=== PATIENT | female | born 1970 | race Caucasian/White ===

== ENCOUNTER → 2022-06-05 14:52 | Outpatient (BNVA) | payer MEDICAID, SELFPAY | PROVIDERS: Visit Provider Orthopaedic Surgery | DX: M17.0 Bilateral primary osteoarthritis of knee (principal) | CPT/HCPCS: 73560; 73565 ==

== ENCOUNTER → 2022-07-04 15:04 | Outpatient (BNVA) | payer MEDICAID, SELFPAY | PROVIDERS: Referring Provider Orthopaedic Surgery; Visit Provider Nurse Practitioner Family | DX: M54.31 Sciatica, right side (principal) | CPT/HCPCS: 72110 ==

== ENCOUNTER 2022-08-29 14:03 | Outpatient (CLI) | payer MEDICAID, SELFPAY ==
--- NOTE | 2022-08-29 13:45 | MR_ITS ---
WS: [id number] MRI LUMBAR SPINE NONCONTRAST TECHNIQUE: Sagittal T1, T2 and STIR imaging. Axial T1 and T2 imaging. CLINICAL INFORMATION: low back pain COMPARISON: None. FINDINGS: Mild lumbar curve. No acute compression. No high-grade central canal stenosis. 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 L1-L2: No significant disc bulging. Moderate facet arthropathy. Spinal canal and foramen are patent. L2-L3: Mild annular bulging. Moderate facet arthropathy. Mild RIGHT and no significant LEFT foraminal narrowing. L3-L4: No significant disc bulging. Moderate facet arthropathy. Spinal canal and foramen are patent. L4-L5: Mild annular bulging. Advanced facet arthropathy. Mild bilateral foraminal narrowing LEFT grea ter than RIGHT. L5-S1: No significant disc bulging. Moderate to advanced facet arthropathy worse in the LEFT. Spinal canal and foramen are patent. Small RIGHT renal cortical cyst. Normal caliber visualized abdominal aorta. MR/MR lumbar spine wo con* [id number] IMPRESSION: 1. Mild lumbar curve. No acute compression. No high-grade central canal stenos is. 2. Mild annular bulging L4-L5 with slight effacement of ventral thecal sac. Mi ld bilateral foraminal narrowing at this level. 3. Mild RIGHT L2-L3 and RIGHT L3-L4 foraminal narrowing. 4. Moderate to advanced facet arthropathy L4-L5 and LEFT L5-S1.
== END 2022-08-29 14:04 | disposition home or self-care (01) ==
LOC: RAD 14:08
PROVIDERS: Visit Provider Nurse Practitioner Family
DX: M54.50 Low back pain, unspecified (principal); M47.897 Other spondylosis, lumbosacral region
CPT/HCPCS: 72148

== ENCOUNTER 2022-09-13 14:35 | Outpatient (CLI) | payer MEDICAID, SELFPAY ==
--- NOTE | 2022-09-13 14:56 | MM_ITS ---
WS: [id number] BILATERAL 3D TOMOSYNTHESIS DIGITAL SCREENING MAMMOGRAPHY WITH CAD CLINICAL INFORMATION: SCREENING HISTORY: Screening mammogram. Bilateral breast cysts. COMPARISON: November 04, 2020 TECHNIQUE: Bilateral CC and MLO views. FINDINGS: The breasts are composed of heterogeneous fibroglandular density tissue, which can limit the detectio n of small underlying mass lesions. Slightly spiculated asymmetry upper RIGHT breast progressed karlie red to previous. Recommend further evaluation with spot compression diagnostic mammography and ultras ound if persistent. Few stable intramammary lymph nodes LEFT breast. A few incidental punctate calcifications. Biopsy mar ker upper outer LEFT breast.a MM/[place] [id number] IMPRESSION: BI-RADS: 0-Incomplete: Need additional imaging evaluation FOLLOW UP: Need Additional Imaging Recommend RIGHT breast diagnostic mammography with spot compression views and u ltrasound if persistent.
== END 2022-09-13 14:36 | disposition home or self-care (01) ==
PROVIDERS: PCP Registered Nurse; Visit Provider Registered Nurse
DX: Z12.31 Encounter for screening mammogram for malignant neoplasm of breast (principal)
CPT/HCPCS: 77063; 77067

== ENCOUNTER 2022-10-11 13:13 | Outpatient (CLI) | payer MEDICAID, SELFPAY ==
--- NOTE | 2022-10-11 13:19 | MM_ITS ---
WS: [id number] RIGHT 3D TOMOSYNTHESIS DIGITAL MAMMOGRAPHY WITH CAD CLINICAL INFORMATION: ABNORMAL MAMMO HISTORY: Additional views COMPARISON: September 13, 2022 TECHNIQUE: 2 views of the right breast were obtained. FINDINGS: Scattered fibroglandular densities of the right breast. Persistent asymmetry in the upper outer RIGHT breast anteriorly. This is slightly less distinct on the spot compression views. Ultrasound describe d below ULTRASOUND BREAST RIGHT TECHNIQUE: Ultrasound right breast focused area of concern. CLINICAL INFORMATION: ABNORMAL MAMMO FINDINGS: Ultrasound RIGHT breast upper-outer quadrant. Incidental cyst at the 9:00 position 1 cm from the nipp le measuring 8 x 6 x 4.5 mm with a single septation. This has a benign appearance. No other suspiciou s findings. No suspicious lesions to target for biopsy. MM/[place] [id number] IMPRESSION: BI-RADS: 2-Benign FOLLOW UP: 1 Year Follow-up Recommend return to annual screening mammography.
== END 2022-10-11 13:14 | disposition home or self-care (01) ==
LOC: RAD 13:16
PROVIDERS: PCP Registered Nurse; Visit Provider Registered Nurse
DX: R92.8 Other abnormal and inconclusive findings on diagnostic imaging of breast (principal)
CPT/HCPCS: 76642; 77061; G0279

== ENCOUNTER 2024-08-11 13:29 | Observation (INO) | payer BC, MEDICAID, SELFPAY ==
--- NOTE | 2024-08-06 12:42 | ANES.PREANE2 ---
Pre-Anesthetic Assessment Height/Weight: Height 5 ft 8.5 in Preop Diagnosis: Cystocele Operation Date: 08/11/24 11:00 Proposed Procedures p Anterior Repair Anterior Colporrhaphy 35306, 80407, N81.10, N81.6, N39.3(Not Applicable) - Joaquin Restrepo MD s Posterior Repair Posterior Colporrhaphy(Not Applicable) - Joaquin Restrepo MD s Sling Single Incision Midurethral Sling(Not Applicable) - Joaquin Restrepo MD Was Beta Atilio taken within 24 hours: N/A Was Clonidine taken within 24 hours: N/A Social No alcohol and No tobacco Exam alert, oriented x 3, clear to auscultation bilaterally and regular rate & rhythm Airway Submandibular: within normal limits Cervical ROM: within normal limits Mallampati: Class III Dentition: full Comments: Comments: Multiple missing teeth, denies any loose Anesthetic Plan ASA status: 2 Anesthesia: General Other: No prior issues with anesthesia NPO at midnight prior to surgery History of hypertension on HCTZ Denies smoking, prior nicotine use Plan for GETA Medications/Allergies Home Medications Medication Instructions Recorded Confirmed Last Taken Type aspirin 81 mg tablet,delayed 81 mg PO DAILY 06/26/23 08/06/24 08/05/24 History release (Adult Aspirin Regimen) clindamycin phosphate 1 % topical 1 applic topical DAILY 08/02/23 08/06/24 Unknown History gel, once daily hydrochlorothiazide 12.5 mg tablet 12.5 mg PO DAILY 09/05/23 08/06/24 08/06/24 History bupropion HCl 300 mg 24 hr tablet, 300 mg PO QAM #30 tabs 06/25/24 08/06/24 08/06/24 Rx extended release (Wellbutrin XL) hydroxyzine HCl 50 mg tablet 100 mg (2 x 50 mg) PO .HS PRN 06/25/24 08/06/24 08/05/24 Rx insomnia #60 tabs paroxetine HCl 40 mg tablet 60 mg (1.5 x 40 mg) PO DAILY #45 06/25/24 08/06/24 08/06/24 Rx tabs prazosin 5 mg capsule 10 mg (2 x 5 mg) PO .HS #60 caps 06/25/24 08/06/24 08/05/24 Rx ropinirole 4 mg tablet 4 mg PO .HS #30 tabs 06/25/24 08/06/24 08/05/24 Rx Allergies Allergy/AdvReac Type Severity Reaction Status Date / Time gabapentin Allergy Mild hives Verified 08/06/24 09:56 nickel Allergy ALGY-Rash Verified 08/06/24 12:07 lisinopril AdvReac Intermediate Coughing Verified 08/06/24 09:56 [facility] Anesthesia Medical History (Updated 08/06/24 @ 12:09 by Alba Caldera RN) Psychiatric care Family History Father Hypertension Heart disease Diabetes Mother Breast cancer Heart disease Hypertension Brother Hypertension Grandmother Diabetes Denies family history of Colon cancer Ovarian cancer Uterine cancer Thyroid disease Stroke Social History Smoking and tobacco/nicotine status: current every day tobacco/nicotine user (Vape) Data Anesthesia Cardiac Studies: No Data to Display
[2024-08-11] VITALS (12 sets, daily range): BP systolic 123–167; BP diastolic 69–108; PULSE 61–87; RESP 16–18; TEMP 36.2–36.8; O2SAT 90–97
[2024-08-11] MEDS: sodium chloride 0.9% 1,000 ML 30 ML IV (09:14)
[2024-08-11] MEDS: scopolamine 1 mg PATCH 1 PATCH TRANSDERMA (09:19)
[2024-08-11] MEDS: enoxaparin 40 mg/0.4 mL Syringe SUBCUT (09:25)
[2024-08-11 09:29] LABS: Basophils # 0.1 10^3/uL (0.0-0.1); Basophils % 0.6 %; Eosinophils # 0.3 10^3/uL (0.0-0.8); Eosinophils % 3.3 %; Hematocrit 38.9 % (36-47); Lymphocytes # 3.2 10^3/uL (0.8-4.8); Lymphocytes % 31.8 %; Mean Corpuscular HGB Conc 33.2 g/dL (30-55); Mean Corpuscular Hemoglobin 29.5 pg (27-33); Mean Platelet Volume 9.9 fL (7.4-10.4); Monocytes # 0.6 10^3/uL (0.2-0.9); Monocytes % 5.7 %; Neutrophils # 5.88 10^3/uL (1.8-7.7); Neutrophils % 58.3 %; Nucleated Red Blood Cells % 0 %; Platelet Count 265 10^3/cmm (157-399); Red Blood Count 4.37 10^6/uL (3.85-5.65); Red Cell Distribution Width 13.2 % (12.1-15.1); White Blood Count 10.09 10^3/uL (3.29-11.43)
[2024-08-11 09:53] LABS: Alanine Aminotransferase 15 U/L (0-33); Albumin Level 4.3 g/dL (3.5-5.2); Alkaline Phosphatase 107 U/L (35-105); Anion Gap 19.5 (5-19); Aspartate Amino Transferase 18 U/L (0-32); Blood Urea Nitrogen 17 mg/dL (6-20); Calcium 9.4 mg/dL (8.5-10.5); Carbon Dioxide 24 mmol/L (22-29); Chloride 98 mmol/L (98-107); Creatinine Clr Calc Pharmacy 136.5187; Globulin 2.8 g/dL (1.3-4.6); Glomerular Filtration Rate 87.5 mL/min (90-130); Glucose 117 mg/dL (65-115); Osmolality Calculated 287 mOsm/kg (285-295); Potassium 4.5 mmol/L (3.5-5.1); Sodium 137 mmol/L (136-145); Total Bilirubin 0.2 mg/dL (0.15-1.2); Total Protein 7.1 g/dL (6.6-8.7)
[2024-08-11] MEDS: ceFAZolin 3,000 MG in sodium chloride 0.9% (plus) 100 ML 200 MG IV (10:38)
[2024-08-11 11:03] LABS: Bilirubin Urine Negative (Negative); Blood Urine Negative (Negative); Glucose Urine UA Negative (Normal); Ketones Urine Negative (Negative); Leukocyte Esterase Urine Negative (Negative); Nitrate Urine Negative (Negative); Protein Urine Negative (Negative); Specific Gravity, Urine 1.019 (1.005-1.030); Urine Appearance Clear (CLEAR); Urine Color Yellow (Yellow); Urobilinogen Urine 0.2 mg/dL (Negative); pH Urine 5.5 (5-7)
[2024-08-11 11:08] LABS: Add Urine Microscopic? YES; Bacteria Urine None Seen /hpf; Hyaline Casts Urine 0-4 /lpf; RBC Urine 0-2 /hpf (0-2); Squamous Epithelial Cell Urine 0-5 /hpf (0-5); WBC Urine 0-5 /hpf (0-5)
--- NOTE | 2024-08-11 11:31 | P.ANESUD_ITS ---
Pre-Anesthetic Update Pre-Anesthetic Assessment: Date of Surgery/Procedure: 08/11/24 Preop Cata gnosis: Cystocele, rectocele, mixed urinary incontinence Proposed Procedure: Operation Date: 08/11/24 10:20 Proposed Procedures p Anterior Repair Anterior Colporrhaphy 48771, 43591, N81.10, N81.6, N39.3(Not Applicable) - Joaquin Restrepo MD s Posterior Repair Posterior Colporrhaphy(Not Applicable) - Joaquin Restrepo MD s Sling Single Incision Midurethral Sling(Not Applicable) - Joaquin Restrepo MD Any changes to Pre-Anesthetic Assessment?: No Last Intake: Intake Last Liquid Date 08/10/24 Last Liquid Time 21:00 Last Solid Date 08/10/24 Last Solid Time 22:30 Labs Last 48hrs: Short CBC 08/11/24 Range/Units 09:13 WBC 10.09 (3.29-11.43) 10^ 3/uL Hgb 12.90 (11.27-16.99) g/ dL Hct 38.9 (36-47) % MCV 89.0 (85-98) fl Plt Count 265 (157-399) 10^3/c mm Neut % (Auto) 58.3 % Neut # (Auto) 5.88 (1.8-7.7) 10^3/u L BMP 08/11/24 09:13 Sodium 137 Potassium 4.5 Chloride 98 Carbon Dioxide 24 BUN 17 Creatinine 0.7 Glucose 117 H Calcium 9.4 Liver Function 08/11/24 Range/Units 09:13 Total Bilirubin 0.2 (0.15-1.2) mg/dL AST 18 (0-32) U/L ALT 15 (0-33) U/L Alkaline Phosphata se 107 H (35-105) U/L Albumin 4.3 (3.5-5.2) g/dL Urine 08/11/24 Range/Units 10:33 Urine Color Yellow (Yellow) Urine Appearance Clear (CLEAR) Urine pH 5.5 (5-7) Ur Specific Gravit y 1.019 (1.005-1.030) Urine Protein Negative (Negative) Urine Glucose (UA) Negative (Normal) Urine Ketones Negative (Negative) Urine Nitrate Negative (Negative) Urine Bilirubin Negative (Negative) Ur Leukocyte Meagan ase Negative (Negative) Urine RBC 0-2 (0-2) /hpf Urine WBC 0-5 (0-5) /hpf Blood Bank 08/11/24 09:13 Blood Type B Positive Rho(D) Type Rh positive Antibody Screen Negative Vitals: Temperature 97.7 F 08/11/24 09:01 Temperature Source Temporal Artery S can 08/11/24 09:01 Pulse Rate 87 08/11/24 09:01 Respiratory Rate 18 08/11/24 09:01 Blood Pressure 152/95 08/11/24 09:01 Blood Pressure Stephanie n 114 08/11/24 09:01 Pulse Oximetry 97 08/11/24 09:01 Oxygen Delivery Me thod Room Air 08/11/24 09:01 Exam: Pre-Anes Outpt Exam: alert, oriented x 3, clear to auscultation bilaterally and regular rate & rhythm Cardiac Studies: No Data to Display
--- NOTE | 2024-08-11 11:42 | W.PM.OPSUD ---
Surgery/Procedure H&P Update DATE OF PROCEDURE: August 11, 2024 DATE H&P PERFORMED: 08/06/24 H&P UPDATE INFORMATION: I have reviewed H&P completed within last 30 days, I have examined patient prior to procedure and No changes to prior documentation PREOP DIAGNOSIS: Cystocele, rectocele, mixed urinary incontinence PLANNED PROCEDURE: Operation Date: 08/11/24 10:20 Proposed Procedures p Anterior Repair Anterior Colporrhaphy 59422, 55308, N81.10, N81.6, N39.3(Not Applicable) - Joaquin Restrepo MD s Posterior Repair Posterior Colporrhaphy(Not Applicable) - Joaquin Restrepo MD s Sling Single Incision Midurethral Sling(Not Applicable) - Joaquin Restrepo MD
[2024-08-11] MEDS: lidocaine-epi 2% PF 1:200,000 20 mL SDV INJECTION (12:23)
--- NOTE | 2024-08-11 13:45 | W.PM.BPON ---
Date of Procedure: 08/11/24 Surgeon: Joaquin Restrepo MD [employer](s): Procedure(s) performed: Anterior colporrhaphy augmented with allograft, mid urethral sling, posterior colporrhaphy Findings of the procedure(s): Cystocele, rectocele Estimated blood loss: 50 Specimen(s) removed: None Post-operative diagnosis: Status post anterior colporrhaphy, posterior colporrhaphy and mid urethral sling
--- NOTE | 2024-08-11 13:47 | P.OP_ITS ---
Operative Report Date of procedure: August 11, 2024 Pre-op diagnosis: Cystocele 3 Rectocele 3 Mixed urinary incontinence Post-op diagnosis: same Procedure done: Anterior colporrhaphy augmented with allograft Mid urethral sling Posterior colporrhaphy Cystoscopy Implants: Coloplast Altis midurethral sling Coloplast dermis allograft Surgeon: Joaquin Restrepo MD Estimated blood loss (mL): 50 IV fluids (mL): 1,200 Urine output (mL): 200 Complications: none Procedure: After obtaining informed consent, the patient was taken to the operating room and placed in the supine position, given general anesthesia, and prepped and draped in sterile fashion. The abdomen, vulva and vagina were prepped and draped in a sterile manner. A time out procedure was performed. The anterior vaginal mucosa beneath the midurethra was infiltrated with 2% lidocaine with epinephrine. A vertical midline incision was made beneath the midurethra, nearly 1.5 cm length. Careful submucosal dissection was performed bilaterally up to the interior portion of the inferior pubic ramus. The insertion of adductor longus tendon on the patient?s pubic ramus was identified as reference land yana. Palpated the notch along the internal edge of ischiopubic ramus where the adductor longus tendon and the inferior pubic ramus meet. The Altis single incision sling (SIS) was selected. Then the needle of the SIS inserted aiming at the location of this notch. One of the integrated self-fixating tips place onto the needle by sliding it over the end of the needle. The needle/sling assembly was inserted toward the location of identified reference notch making sure that the flat of the handle is perpendicular to the desired path. The needle was tracked along the posterior surface of the ischiopubic ramus until the midline yana on the mesh is approximately at the midline position under the urethra. The needle was removed and the same was repeated on the contralateral side until the appropriate sling tension under the urethra was achieved ensuring that the mesh lays flat. The needle was removed and vaginal incision was closed in a running interlocking fashion with 2-0 Vicryl. The vaginal mucosa was scored in the midline with the Bovie approximately 1 cm medial to the urethral meatus to 1 cm distal to the vaginal cuff. This vaginal mucosa was then undermined and then incised in the midline with the Metzenbaum scissors. The lateral aspects of the vaginal mucosa were then grasped with the Allis clamps and the vaginal mucosa was then dissected off the underlying fascia with the Metzenbaum scissors. Again, there was noted to be quite a bit of oozing at the incision, which was controlled with cautery. After adequate dissection was performed, bilaterally. A coloplast Dermis allograft was modified at time of application to fit spacea, 3 x 3 cm piece. The Coloplast allograft was placed in front of cystocele ready to be implanted facing the vagina mucosa. Bray ture is placed at distal end of graft and placed towards vaginal cuff. Final suture is placed on proximal portion of the graft to complete the placement overlying the bladder. Then Interrupted vertical mattress sutures of 0 Vicryl were used to elevate the cystocele superiorly. The excessive vaginal mucosa was then trimmed with the Metzenbaum scissors and the vaginal mucosa was then reapproximated in the running interlocking fashion with 2-0 Vicryl. A dilute 2% lidocaine with epinephrine solution was infiltrated under the posterior vaginal mucosa midline and into the perineal body. An inverted triangle incision was cut in the perineum. The posterior vaginal wall was opened vertically and midline up to the apex of the rectocele. The cut edges were held and splayed laterally with a series of Allis The open vaginal mucosa was then dissected laterally with a combination of sharp and blunt dissection, exposing the perirectal fascia. The perirectal fascia was then reapproximated with interr upted #2-0 Vicryl sutures to draw the lateral folds together and tuck the rectocele back. Deep interrupted sutures of #0 Vicryl were used to reapproximate the fibers of the levator ani muscles. The excess vaginal mucosa was trimmed. The posterior vaginal wall was closed with a running locked #0 Vicryl to the hymenal tags. The superficial perineal muscles were closed with running unlocked #0 Vicryl and the perineal skin was closed with running subcuticular #2-0 Vicryl. Then the Hudson catheter was removed and cystoscope was inserted. The bladder was filled with sterile water. Complete evaluation of the bladder mucosa was performed noting no lacerations, dimpling, tears, bleeding of the mucosa or muscular layers. Both ureteral orifices were identified. Prompt excretion of urine from both ureteral orifices was noted. Cystoscope was withdrawn. The Hudson catheter was replaced. Excellent hemostasis was obtained. A vaginal pack is placed overnight as postoperative support for the vaginal tissues after graft placement and closure of vaginal incisions. Sponge, lap, needle, and instrument counts were correct times three. The patient was taken to the recovery room, awake and in stable condition.
--- NOTE | 2024-08-11 14:15 | ANE.PACU2 ---
Inpatient post-anesthesia follow up: Airway intact: Yes Vital signs: Temperature 97.9 F Pulse Rate 73 Respiratory Rate 16 Blood Pressure 166/97 Pulse Oximetry 96 Oxygen Delivery Me thod Room Air Oxygen Flow Rate Fraction of Inspir ed Oxygen Hydration adequate: Yes Nausea and vomiting: No Pain level: 1 Mental status: Baseline
[2024-08-11] MEDS: ketorolac 30 mg/mL INJ IVP ×2 (15:00→20:20)
[2024-08-11] MEDS: HYDROcodone-acetaminophen 5-325 mg Tablet PO ×2 (15:56→22:30)
[2024-08-11] MEDS: simethicone 80 mg Chew PO (20:20)
[2024-08-11] MEDS: docusate sodium 100 mg Capsule PO (20:20)
[2024-08-11] MEDS: prazosin 5 mg Capsule 10 MG PO (21:18)
[2024-08-11] MEDS: ropinirole 2 mg Tablet 4 MG PO (21:18)
[2024-08-11] MEDS: hyDROXYzine 25 mg Capsule 100 MG PO (21:18)
[2024-08-11] MEDS: dextrose 5%-lactated ringers 1,000 ML 125 ML IV (21:19)
[2024-08-12] VITALS: BP 130/70; PULSE 59; RESP 16; TEMP 36.5; O2SAT 96
[2024-08-12] MEDS: ketorolac 30 mg/mL INJ IVP (02:37)
[2024-08-12 05:00] VITALS: BP 123/63; PULSE 73; RESP 18; TEMP 36.6; O2SAT 96
[2024-08-12] MEDS: buPROPion XL (24 HR) 300 mg Tablet PO (05:22)
--- NOTE | 2024-08-12 05:35 | PC.NURSE ---
Vaginal packing removed. Patient tolerated the procedure well. Scant blood noted.
[2024-08-12 05:43] LABS: Hematocrit 36.2 % (36-47); Mean Corpuscular Hemoglobin 29.1 pg (27-33); Mean Platelet Volume 9.9 fL (7.4-10.4); Platelet Count 234 10^3/cmm (157-399); Red Blood Count 3.98 10^6/uL (3.85-5.65); Red Cell Distribution Width 13.2 % (12.1-15.1); White Blood Count 12.38 10^3/uL (3.29-11.43)
--- NOTE | 2024-08-12 09:05 | P.DS_ITS ---
Discharge Providers REGULATORY COORDINATOR Date of Admission: 08/11/24 13:29 Date of Discharge: 08/12/24 Attending Provider at Admission: Joaquin Restrepo MD Attending Provider at Discharge: Joaquin Restrepo MD Primary Care Provider: Lisa Carl Reason for Visit Reason for Visit: N39.3 Hospital Course Hospital Course Mrs. Guerra 53-year-old female with a history of cystocele, rectocele and mixed urinary incontinence. Admitted for planned anterior colporrhaphy augmented with allograft, posterior colporrhaphy and mid urethral sling. The procedures were performed without complication. Overnight observation was uneventful. She is afebrile and hemodynamically stable postoperative day 1. PVR within normal limits. Tolerating diet well. Ambulating without difficulty. She was counseled regarding pelvic rest for 6 weeks (no sex, no tampons, no vaginal douches). Return to the emergency room if any fever, increased bleeding or pain. Physical Exam Narrative: GA: Alert and oriented ?3. HEENT: WNL. Heart: Regular rate and rhythm. Lungs: Clear to auscultation bilaterally. Abdomen: Bowel sounds present, nontender. 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 Extremities: No edema, no cyanosis, no calves pain. Urinary Catheter Management: [place]: Cath Placed During This Visit: yes, but has since been removed by the nurse Reason for Continuing Indwelling Catheter: Decision to DC Catheter Urinary Catheter Date of Insertion: 08/11/24 Urinary Catheter Time of Insertion: 12:14 Date Urinary Catheter Removed: 08/12/24 Time Urinary Catheter Discontinued: 05:36 Discharge Data Studies Completed and Pending Laboratory Results WBC 12.38 10^3/uL (3.29-11.43) H 08/12/24 05:32 RBC 3.98 10^6/uL (3.85-5.65) 08/12/24 05:32 Hgb 11.60 g/dL (11.27-16.99) 08/12/24 05:32 Hct 36.2 % (36-47) 08/12/24 05:32 MCV 91.0 fl (85-98) 08/12/24 05:32 MCH 29.1 pg (27-33) 08/12/24 05:32 MCHC 32.0 g/dL (30-55) 08/12/24 05:32 RDW 13.2 % (12.1-15.1) 08/12/24 05:32 Plt Count 234 10^3/cmm (157-399) 08/12/24 05:32 MPV 9.9 fL (7.4-10.4) 08/12/24 05:32 Neut % (Auto) 58.3 % 08/11/24 09:13 Lymph % (Auto) 31.8 % 08/11/24 09:13 [place] % (Auto) 5.7 % 08/11/24 09:13 Eos % (Auto) 3.3 % 08/11/24 09:13 Baso % (Auto) 0.6 % 08/11/24 09:13 Neut # (Auto) 5.88 10^3/uL (1.8-7.7) 08/11/24 09:13 Lymph # (Auto) 3.2 10^3/uL (0.8-4.8) 08/11/24 09:13 [place] # (Auto) 0.6 10^3/uL (0.2-0.9) 08/11/24 09:13 Eos # (Auto) 0.3 10^3/uL (0.0-0.8) 08/11/24 09:13 Baso # (Auto) 0.1 10^3/uL (0.0-0.1) 08/11/24 09:13 Nucleated RBC % (auto) 0 % 08/11/24 09:13 Nucleated RBCs # 0.0 /100WBC 08/11/24 09:13 Sodium 137 mmol/L (136-145) 08/11/24 09:13 Potassium 4.5 mmol/L (3.5-5.1) 08/11/24 09:13 Chloride 98 mmol/L (98-107) 08/11/24 09:13 Carbon Dioxide 24 mmol/L (22-29) 08/11/24 09:13 Anion Gap 19.5 (5-19) H 08/11/24 09:13 BUN 17 mg/dL (6-20) 08/11/24 09:13 Creatinine 0.7 mg/dL (0.5-0.9) 08/11/24 09:13 GFR Calculation 87.5 mL/min (90-130) L 08/11/24 09:13 Glucose 117 mg/dL (65-115) H 08/11/24 09:13 Calculated Osmolality 287 mOsm/kg (285-295) 08/11/24 09:13 Calcium 9.4 mg/dL (8.5-10.5) 08/11/24 09:13 Total Bilirubin 0.2 mg/dL (0.15-1.2) 08/11/24 09:13 AST 18 U/L (0-32) 08/11/24 09:13 ALT 15 U/L (0-33) 08/11/24 09:13 Alkaline Phosphatase 107 U/L (35-105) H 08/11/24 09:13 Total Protein 7.1 g/dL (6.6-8.7) 08/11/24 09:13 Albumin 4.3 g/dL (3.5-5.2) 08/11/24 09:13 Globulin 2.8 g/dL (1.3-4.6) 08/11/24 09:13 Urine Color Yellow (Yellow) 08/11/24 10:33 Urine Appearance Clear (CLEAR) 08/11/24 10:33 Urine pH 5.5 (5-7) 08/11/24 10:33 Ur Specific [place] 1.019 (1.005-1.030) 08/11/24 10:33 Urine Protein Negative (Negative) 08/11/24 10:33 Urine Glucose (UA) Negative (Normal) 08/11/24 10:33 Urine Ketones Negative (Negative) 08/11/24 10:33 Urine Blood Negative (Negative) 08/11/24 10:33 Urine Nitrate Negative (Negative) 08/11/24 10:33 Urine Bilirubin Negative (Negative) 08/11/24 10:33 Urine Urobilinogen 0.2 mg/dL (Negative) 08/11/24 10:33 Ur Leukocyte Esterase Negative (Negative) 08/11/24 10:33 Urine RBC 0-2 /hpf (0-2) 08/11/24 10:33 Urine WBC 0-5 /hpf (0-5) 08/11/24 10:33 Ur Squamous Epith Cells 0-5 /hpf (0-5) 08/11/24 10:33 Amorphous Sediment Not Reportable 08/11/24 10:33 Urine Bacteria None seen /hpf (NONE) 08/11/24 10:33 Hyaline Casts 0-4 /lpf H 08/11/24 10:33 Blood Type B Positive 08/11/24 09:13 Rho(D) Type Rh positive 08/11/24 09:13 Antibody Screen Negative 08/11/24 09:13 Vitals Last Vital Signs Temp 97.8 F 08/12/24 05:00 Pulse 73 08/12/24 05:00 Resp 18 08/12/24 05:00 BP 123/63 08/12/24 05:00 Pulse Ox 96 08/12/24 05:00 O2 Del Method Room Air 08/12/24 05:00 Results Labs OB ([facility]): Blood Type B Positive 08/11/24 Antibody Screen Negative 08/11/24 Hct 36.2 % (36-47) 08/12/24 Hgb 11.60 g/dL (11.27-16.99) 08/12/24 Rho(D) Type Rh positive 08/11/24 Plt Count 234 10^3/cmm (157-399) 08/12/24 Discharge Plan Discharge Patient Disposition: Home Condition: Stable Prescriptions: New hydrocodone-acetaminophen 5-325 mg tablet 1 tab PO Q4H PRN (Reason: pain) Qty: 10 0RF acetaminophen 325 mg capsule 325 mg PO Q4H PRN (Reason: fever or pain) Qty: 60 0RF ibuprofen 800 mg tablet 800 mg PO TID PRN (Reason: pain) Qty: 60 0RF oxybutynin chloride 5 mg tablet extended release 24hr 5 mg PO DAILY Qty: 30 0RF Continued clindamycin phosphate 1 % gel, once daily 1 applic topical DAILY hydrochlorothiazide 12.5 mg tablet 12.5 mg PO DAILY bupropion HCl [Wellbutrin XL] 300 mg tablet extended release 24 hr 300 mg PO QAM Qty: 30 2RF paroxetine HCl 40 mg tablet 60 mg PO DAILY Qty: 45 2RF hydroxyzine HCl 50 mg tablet 100 mg PO .HS PRN (Reason: insomnia) Qty: 60 2RF prazosin 5 mg capsule 10 mg PO .HS Qty: 60 2RF ropinirole 4 mg tablet 4 mg PO .HS Qty: 30 2RF aspirin [Adult Aspirin Regimen] 81 mg tablet,delayed release (DR/EC) 81 mg PO DAILY Discharge Orders: Discharge Order (Routine); Ordered 08/12/24 Ordered By: Joaquin Restrepo Referrals: Joaquin Restrepo MD [Physician] - 2 weeks Discharge Diet: Usual diet Discharge Activity: Limit activity as instructed Patient Instructions: Acute Wound Care (DC), Opioid Safety (DC), Bladder Sling for Women (GEN), Anterior Vaginal Repair (GEN), Posterior Vaginal Repair (GEN), OB Discharge Report, OB Food/Drug Interaction Guide, Opioid Safety, Post Anesthesia Care Activity Restrictions/Additional Instructions: 1. Please call [facility] Women s [facility] clinic on next working day to make your post-operative appointment in 2 weeks. 2. Please stay home until you come back to the clinic on first post-hospatilization check up. 3. Please follow instructions on your medications CAREFULLY. 4. If you have abdominal incision, do not cover it unless dressing is necessary because of drainage. OK to shower, but avoid bath. Leave steri-strips until they fall off. If they are still on one week after surgery, you may remove them. 5. If you had vaginal surgery or vaginal repair, Dr. Restrepo may instruct you to take SITZ bath. 6. Yellow, blood tinged odorous vaginal discharge is usually normal after hysterectomy or vaginal surgeries. 7. No SEXUAL INTERCOURSE, tampons, or douches until you are completely released from the post-operative care. 8. Avoid constipation by eating right and maybe using some Metamucil or Milk of Magnesia. 9. All prescription refills are given during the working hours. Please do no wait till it runs out. Call the clinic at [phone] before your medication runs out. The clinic will get in touch with your doctor to prescribe medications if necessary. 10. Please remain within 40 mile radius from our hospital because emergencies do happen now and then during the post-operative period. 11. If you have stairs at home, take one step at a time slowly and minimize the number of trips. It helps to stay in one floor for the next few days. No lifting except what you can lift by one hand until you are released from the post-operative care. 12. Driving is discouraged until you are well healed. It may be 3-4 weeks before you feel strong enough to drive. You should be able to turn and look through the rear window without pain and you should be able to push the brake pedal very hard without pain before you drive. No fast rules, but SAFETY should be your primary concern. DO NOT drive if you are on sedating medications such as narcotics. 13. Call the clinic (during working hours) to make urgent appointment or go to the Emergency room, if any of the following occurs: i. Vaginal bleeding becomes heavy, more than a period. ii. Incision becomes red and sore, or drains pus. iii. Your TEMPERATURE is over 100.4F or you have chill. iv. IV site becomes red and swollen (a little ``knot?? is usually OK) v. Persistent nausea and vomiting vi. Persistent constipation or diarrhea vii. Rash or allergic reaction to medications. Discharge Attestations REGULATORY COORDINATOR Time Spent in Discharge Care*: greater than 30 min Coding Level of Care Code Acute Code for Chg Fwd
[2024-08-12] MEDS: ibuprofen 800 mg tablet PO (09:50)
[2024-08-12] MEDS: aspirin 81 mg EC Tablet PO (09:50)
[2024-08-12] MEDS: PARoxetine 20 mg Tablet 60 MG PO (09:50)
[2024-08-12] MEDS: hydroCHLOROthiazide 25 mg Tablet 12.5 MG PO (09:51)
[2024-08-12] MEDS: docusate sodium 100 mg Capsule PO (09:51)
[2024-08-12 10:45] VITALS: BP 166/97; PULSE 73; RESP 16; TEMP 36.6; O2SAT 96
== END 2024-08-12 11:00 | disposition home or self-care (01) ==
LOC: OBGYN 13:35
PROVIDERS: Admitting Provider Obstetrics & Gynecology; PCP Registered Nurse; Visit Provider Obstetrics & Gynecology
PROC: 0JQC0ZZ Repair Pelvic Region Subcutaneous Tissue and Fascia, Open Approach (ICD-10-PCS; CPT 57240; principal; 2024-08-11 10:10)
PROC: (CPT 57250; 2024-08-11 10:10)
PROC: (CPT 57288; 2024-08-11 10:10)
PROC: 0TJB8ZZ Inspection of Bladder, Via Natural or Artificial Opening Endoscopic (ICD-10-PCS; CPT 52000; 2024-08-11 10:10)
DX: N81.10 Cystocele, unspecified (principal); N81.6 Rectocele; N39.46 Mixed incontinence; F17.210 Nicotine dependence, cigarettes, uncomplicated
CPT/HCPCS: 57288; 57260; 36415; 80053; 81001; 85025; 85027; 86850; 86900; A4216; C1713; C1762; G0378; J0131; J0690; J1650; J1885; J2250; J3010; J7030; J7121

== ENCOUNTER → 2024-10-12 09:58 | Outpatient (BNVA) | payer BC, MEDICAID, SELFPAY | PROVIDERS: PCP Registered Nurse; Visit Provider Nurse Practitioner Family | DX: R73.03 Prediabetes (principal); E88.810 Metabolic syndrome; E66.9 Obesity, unspecified | CPT/HCPCS: 80053; 80061; 81003; 82306; 83036; 84443; 85025 ==

== ENCOUNTER 2024-10-27 20:00 | Outpatient (CLI) | payer BC, MEDICAID, SELFPAY | END 2024-10-27 20:01 | disposition home or self-care (01) | LOC: SLEEP 21:13 | PROVIDERS: PCP Registered Nurse; Visit Provider Nurse Practitioner Family | DX: G47.33 Obstructive sleep apnea (adult) (pediatric) (principal); G47.36 Sleep related hypoventilation in conditions classified elsewhere | CPT/HCPCS: 95810 ==

== ENCOUNTER 2024-11-17 11:48 | Day surgery (SDC) | payer BC, MEDICAID, SELFPAY ==
[2024-11-17 12:07] VITALS: BP 152/105; PULSE 103; RESP 18; TEMP 36.1; O2SAT 96; BMI 43.3
[2024-11-17] MEDS: sodium chloride 0.9% 500 ML 15 ML IV (12:15)
[2024-11-17 12:19] LABS: Glucose Point of Care 137 mg/dL (70-110)
--- NOTE | 2024-11-17 12:39 | ANES.PREANE2 ---
Pre-Anesthetic Assessment Height/Weight: Height 1.8 m Weight 141.067 kg Temp Pulse Resp BP Pulse Ox O2 Del Method 97 F L 103 H 18 152/105 96 Room Air 11/17/24 12:07 11/17/24 12:11/17/24 12:07 11/17/24 12:07 11/17/24 12:11/17/24 12:07 Preop Diagnosis: screening Operation Date: 11/17/24 13:15 Proposed Procedures p Colonoscopy 13268, G0121, Z12.11(Not Applicable) - Michael Templeton MD Familial anesthetic complications: none Was Beta Atilio taken within 24 hours: N/A Was Clonidine taken within 24 hours: N/A Last intake: Intake Last Liquid Date 11/17/24 Last Liquid Time 05: Last Solid Date 11/15/24 Last Solid Time 20:30 Social Tobacco and No alcohol Vapes nicotine and marijuana Exam alert, oriented x 3, clear to auscultation bilaterally and regular rate & rhythm Airway Submandibular: within normal limits Cervical ROM: within normal limits Mallampati: Class II Comments: Comments: missing top right teeth History/ROS No significant history except as noted and No significant complaints Pulmonary None reported CV/HEM Hypertension None reported Hepatic None reported GI Gastroesophageal Reflux Disease and Hiatal Hernia Metabolic Diabetes Mellitus [facility] None reported Neuropsych Anxiety and Depression PTSD Anesthetic Plan ASA status: 3 Anesthesia: MAC Risk of > 500 ml blood loss (7ml/kg in children): No Medications/Allergies Home Medications ?Medication ?Instructions ?Recorded ?Confirmed ?Last Taken ?Type aspirin 81 mg tablet,delayed 81 mg PO DAILY 06/26/23 11/11/24 11/15/24 History release (Adult Aspirin Regimen) hydrochlorothiazide 12.5 mg tablet 12.5 mg PO DAILY 09/05/23 11/17/24 11/17/24 History oxybutynin chloride 5 mg 5 mg PO DAILY mixed incontinence 09/21/24 11/11/24 11/16/24 Rx tablet,extended release 24 hr #90 tabs bupropion HCl 300 mg 24 hr tablet, 300 mg PO QAM #30 tabs 09/24/24 11/11/24 11/16/24 Rx extended release (Wellbutrin XL) hydroxyzine HCl 50 mg tablet 100 mg (2 x 50 mg) PO .HS PRN 09/24/24 11/11/24 11/16/24 Rx insomnia #60 tabs paroxetine HCl 40 mg tablet 60 mg (1.5 x 40 mg) PO DAILY #45 09/24/24 11/11/24 11/16/24 Rx tabs prazosin 5 mg capsule 10 mg (2 x 5 mg) PO .HS #60 caps 09/24/24 11/11/24 11/16/24 Rx ropinirole 4 mg tablet 4 mg PO .HS #30 tabs 09/24/24 11/11/24 11/16/24 Rx clindamycin phosphate 1 % topical 1 applic topical DAILY #75 mL 10/12/24 11/11/24 Unknown Rx gel, once daily cholecalciferol (vitamin D3) 1,250 50,000 unit PO .weekly #12 caps 10/15/24 11/11/24 11/15/24 Rx mcg (50,000 unit) capsule tirzepatide 2.5 mg/0.5 mL 2.5 mg (0.5 mL) SUBCUT .weekly 30 10/15/24 11/11/24 Unknown Rx subcutaneous pen injector days #2 mL (Jose) ondansetron 8 mg disintegrating 8 mg PO Q8H PRN nausea and 10/26/24 11/11/24 11/16/24 Rx tablet vomiting #3 tabs losartan 25 mg tablet See Rx Instructions PO DAILY #60 11/02/24 11/11/24 11/16/24 Rx tabs Allergies Allergy/AdvReac Type Severity Reaction Status Date / Time gabapentin Allergy Mild hives Verified 11/11/24 08:59 nickel Allergy ALGY-Rash Verified 11/11/24 08:59 lisinopril AdvReac Intermediate Coughing Verified 11/11/24 08:59 Current Medications Generic Name Dose Route Start Last Admin Trade Name Freq PRN Reason Stop Dose Admin Sodium Chloride 500 mls @ 15 mls/hr 11/17/24 12:00 11/17/24 12:15 Sodium Chloride 0.9% IV 15 mls/hr .Q24H AARTI Administration PFSH Anesthesia Medical History (Updated 11/06/24 @ 11:45 by MAKSIM Butler) Nocturnal hypoxemia Severe sleep apnea Diabetes mellitus, type II Vitamin D deficiency Obesity Metabolic syndrome Prediabetes VARSHA (obstructive sleep apnea) Encounter to establish care with new provider Generalized osteoarthritis of multiple sites Vaping nicotine dependence, tobacco product Rosacea Mild acid reflux Diverticula of colon Restless leg syndrome Hypertension Psychiatric care Surgical History History of laparoscopy Hx of tonsillectomy 1982 History of hysterectomy 2005, Partial History of tubal ligation 1991 History of anterior colporrhaphy (~08/11/24) Anterior colporrhaphy augmented with allograft Mid urethral sling,Posterior colporrhaphy, Cystoscopy performed by Lauro at [facility] for Cystocele 3 Rectocele 3 Mixed urinary incontinence Family History Father Hypertension Heart disease Diabetes Mother Breast cancer Heart disease Hypertension Brother Hypertension Grandmother Diabetes Denies family history of Colon cancer Ovarian cancer Uterine cancer Thyroid disease Stroke Social History Smoking and tobacco/nicotine status: never used tobacco/nicotine
--- NOTE | 2024-11-17 12:51 | W.PM.OPSUD ---
Surgery/Procedure H&P Update DATE OF PROCEDURE: November 17, 2024 DATE H&P PERFORMED: 10/26/24 H&P UPDATE INFORMATION: I have reviewed H&P completed within last 30 days, I have examined patient prior to procedure and No changes to prior documentation PREOP DIAGNOSIS: screening PLANNED PROCEDURE: Operation Date: 11/17/24 13:15 Proposed Procedures p Colonoscopy 77560, G0121, Z12.11(Not Applicable) - Michael Templeton MD
[2024-11-17 13:24] VITALS: BP 97/73; PULSE 91; RESP 18; TEMP 36.5; O2SAT 91
[2024-11-17 13:41] VITALS: BP 120/68; PULSE 88; RESP 16; O2SAT 95
--- NOTE | 2024-11-17 13:46 | ANE.PACU2 ---
Inpatient post-anesthesia follow up: Airway intact: Yes Vital signs: Temperature 97.7 F Pulse Rate 88 Respiratory Rate 16 Blood Pressure 120/68 Pulse Oximetry 95 Oxygen Delivery Me thod Room Air Oxygen Flow Rate Fraction of Inspir ed Oxygen Hydration adequate: Yes Nausea and vomiting: No Pain level: 1 Mental status: Baseline
== END 2024-11-17 13:46 | disposition home or self-care (01) ==
PROVIDERS: PCP Nurse Practitioner Family; Visit Provider Student in an Organized Health Care Education/Training Program
PROC: 0DJD8ZZ Inspection of Lower Intestinal Tract, Via Natural or Artificial Opening Endoscopic (ICD-10-PCS; CPT 45378; principal; 2024-11-17 13:15)
DX: Z12.11 Encounter for screening for malignant neoplasm of colon (principal); I10 Essential (primary) hypertension; K21.9 Gastro-esophageal reflux disease without esophagitis; F17.290 Nicotine dependence, other tobacco product, uncomplicated; G47.33 Obstructive sleep apnea (adult) (pediatric); E11.9 Type 2 diabetes mellitus without complications; Z79.82 Long term (current) use of aspirin; Z79.899 Other long term (current) drug therapy; Z79.85 Long-term (current) use of injectable non-insulin antidiabetic drugs; Z88.8 Allergy status to other drugs, medicaments and biological substances
CPT/HCPCS: 36416; 45378; 82962; J2704; J7040; J9999

== ENCOUNTER → 2024-12-08 11:34 | Outpatient (BNVA) | payer BC, MEDICAID, SELFPAY | PROVIDERS: PCP Nurse Practitioner Family; Visit Provider Nurse Practitioner Family | DX: S30.1XXA Contusion of abdominal wall, initial encounter (principal); Y92.009 Unspecified place in unspecified non-institutional (private) residence as the place of occurrence of the external cause; W19.XXXA Unspecified fall, initial encounter; Z48.816 Encounter for surgical aftercare following surgery on the genitourinary system | CPT/HCPCS: 81003 ==

== ENCOUNTER → 2025-02-02 11:47 | Outpatient (BNVA) | payer BC, MEDICAID, SELFPAY | PROVIDERS: PCP Nurse Practitioner Family; Visit Provider Nurse Practitioner Family | DX: I10 Essential (primary) hypertension (principal); E88.810 Metabolic syndrome; E11.9 Type 2 diabetes mellitus without complications; E66.813 Obesity, class 3; E66.01 Morbid (severe) obesity due to excess calories; Z68.42 Body mass index [BMI] 45.0-49.9, adult; E55.9 Vitamin D deficiency, unspecified | CPT/HCPCS: 80053; 80061; 81003; 82306; 83036; 84443; 85025 ==

== ENCOUNTER 2025-03-31 19:46 | Outpatient (CLI) | payer BC, MEDICAID, SELFPAY | END 2025-03-31 19:47 | disposition home or self-care (01) | LOC: SLEEP 19:48 | PROVIDERS: PCP Nurse Practitioner Family; Referring Provider Nurse Practitioner Family; Visit Provider Internal Medicine Pulmonary Disease | DX: R40.0 Somnolence (principal); G47.30 Sleep apnea, unspecified | CPT/HCPCS: 95811 ==

== ENCOUNTER → 2025-05-10 09:54 | Outpatient (BNVA) | payer BC, MEDICAID, SELFPAY | PROVIDERS: PCP Nurse Practitioner Family; Visit Provider Nurse Practitioner Family | DX: E11.9 Type 2 diabetes mellitus without complications (principal); I10 Essential (primary) hypertension; E66.813 Obesity, class 3; Z68.42 Body mass index [BMI] 45.0-49.9, adult | CPT/HCPCS: 80053; 81003; 83036; 84550 ==

== ENCOUNTER 2025-05-24 15:19 | Outpatient (CLI) | payer BC, MEDICAID, SELFPAY ==
--- NOTE | 2025-05-24 15:24 | XR_ITS ---
WS: [id number] Exam: XR knee RT 3V* [id number] Date/Time of Exam: 05/24/2025 3:32 PM Reason For Exam: M17.12 - Unilateral primary osteoarthritis, bilateral knees No acute fracture. Mild to moderate degenerative changes of the medial joint compartment. Spurring of the posterior patella. No joint effusion. Normal soft tissues. XR/XR knee RT 3V* [id number] IMPRESSION: 1. Degenerative changes. No fracture.
--- NOTE | 2025-05-24 15:24 | XR_ITS ---
WS: [id number] Exam: XR knee LT 3V* [id number] Date/Time of Exam: 05/24/2025 3:32 PM Reason For Exam: M17.12 - Unilateral primary osteoarthritis, left knee Comparison 06/05/2022. No fracture. Moderate degenerative narrowing of the medial joint compartment with marginal osteophytes. Spurring of the posterior patella. No joint effusion. Normal soft tissues. XR/XR knee LT 3V* [id number] IMPRESSION: 1. Moderate degenerative changes.
== END 2025-05-24 15:20 | disposition home or self-care (01) ==
LOC: RAD 15:20
PROVIDERS: PCP Nurse Practitioner Family; Visit Provider Nurse Practitioner Family
DX: M17.12 Unilateral primary osteoarthritis, left knee (principal); M17.11 Unilateral primary osteoarthritis, right knee
CPT/HCPCS: 73562

== ENCOUNTER → 2025-06-08 10:09 | Outpatient (BNVA) | payer BC, MEDICAID, SELFPAY | PROVIDERS: PCP Nurse Practitioner Family; Visit Provider Nurse Practitioner Family | DX: R79.89 Other specified abnormal findings of blood chemistry (principal) | CPT/HCPCS: 80053; 81003; 82570; 84156 ==

== ENCOUNTER 2025-06-16 11:52 | Outpatient (CLI) | payer BC, MEDICAID, SELFPAY ==
--- NOTE | 2025-06-16 12:00 | MM_ITS ---
WS: [id number] BILATERAL 3D TOMOSYNTHESIS DIGITAL SCREENING MAMMOGRAPHY WITH CAD CLINICAL INFORMATION: Z12.31 - Encounter for screening mammogram for malignant ... HISTORY: Screening mammogram. No current complaints. COMPARISON: 2022 TECHNIQUE: Bilateral CC and MLO views. FINDINGS: Scattered fibroglandular densities bilaterally. No suspicious focal mass, asymmetry, calcifications, or architectural distortion. No evidence of malignancy.. Incidental punctate calcifications LEFT breast. Intramammary lymph nodes RIGHT breast. LEFT breast biopsy clip. MM/MM scr tomosynthesis [id number] IMPRESSION: DENSITY: There are scattered areas of fibroglandular density. BI-RADS: 2 - Benign. FOLLOW UP: 1 Year Follow-up Recommend return to annual screening mammography.
== END 2025-06-16 11:53 | disposition home or self-care (01) ==
LOC: MOBLMAM 11:54
PROVIDERS: PCP Nurse Practitioner Family; Visit Provider Nurse Practitioner Family
DX: Z12.31 Encounter for screening mammogram for malignant neoplasm of breast (principal); R92.323 Mammographic fibroglandular density, bilateral breasts; R92.1 Mammographic calcification found on diagnostic imaging of breast; R59.0 Localized enlarged lymph nodes; Z96.89 Presence of other specified functional implants
CPT/HCPCS: 77063; 77067

== ENCOUNTER → 2025-07-02 10:08 | Outpatient (BNVA) | payer BC, MEDICAID, SELFPAY | PROVIDERS: PCP Nurse Practitioner Family; Visit Provider Nurse Practitioner Family | DX: R79.89 Other specified abnormal findings of blood chemistry (principal); E11.9 Type 2 diabetes mellitus without complications | CPT/HCPCS: 80053; 81003; 82570; 83036; 84156; 85025 ==